=== PATIENT | female | born 1985 | race Caucasian/White ===

== ENCOUNTER 2019-08-22 12:10 | Emergency (ER) | payer MEDICAID ==
[~2019-08-22] VITALS: Ht 180.3 cm; Wt 85.7 kg
[2019-08-22 12:21] VITALS: BP 136/94; Ht 180.3 cm; Wt 85.7 kg
== END 2019-08-22 13:47 | disposition home or self-care (01) ==
LOC: ED 12:10
DX: S05.02XA Injury of conjunctiva and corneal abrasion without foreign body, left eye, initial encounter (principal); H10.212 Acute toxic conjunctivitis, left eye; X58.XXXA Exposure to other specified factors, initial encounter; Y93.89 Activity, other specified; Y92.89 Other specified places as the place of occurrence of the external cause; Y99.8 Other external cause status